=== PATIENT | female | born 1940 | race Caucasian/White ===

== ENCOUNTER 2018-05-28 20:00 | Inpatient (IN) ==
--- NOTE | 2018-05-28 20:20 | ED ---
HPI General Chief Complaint: Trauma Stated Complaint: Trauma Transfer Time Seen by Provider: 05/28/18 20:09 Source: patient Mode of arrival: EMS Limitations: no limitations History of Present Illness HPI narrative: The patient is a 77 year old female who presents to the [facility] emergency department with a history of reportedly tripping and falling on uneven concrete at approximately 4 PM earlier today while taking a walk with her . She reports that she hit her head and believes that she had a loss of consciousness as she is amnestic to the events of the accident itself. She was able to get herself home, however then ambulance services were called. The patient was brought to [facility] emergency department and imaging was done of the patient's brain and maxillofacial bones at which time it was noted that the patient had a small subdural hematoma along the left leaf of the tentorium measuring 4 mm. As that facility has no trauma services and no neuro bloody and accepted for transferred by Dr. Roche. The patient was given Tylenol for headache and reports that her headache has improved. She reports having mild right-sided facial pain. She denies having any nausea or vomiting. She denies having any neck pain, numbness or tingling to her extremities, or weakness of her extremities. On review of systems otherwise, the patient denies having any chest pain, shortness of breath, abdominal pain, vomiting, diarrhea, urinary symptoms, or other neurologic symptoms. Related Data Home Medications Medication Instructions Recorded Confirmed alendronate [Fosamax] 70 mg PO QWEEK 05/28/18 05/28/18 losartan 25 mg PO DAILY 05/28/18 05/28/18 Allergies Allergy/AdvReac Type Severity Reaction Status Date / Time No Known Allergies Allergy Verified 05/28/18 20:23 Review of Systems ROS: all other systems reviewed are negative PMFSH History History Provided By: Patient Medical History Medical History History of breast cancer (Acute) Hypertension (Acute) Osteoporosis (Acute) Surgical History Surgical History H/O foot surgery (Acute) S/P breast lumpectomy (Acute) Social History Social History Substance History: No History of Abuse Second Hand Smoke Exposure: No Smoking Status: Never smoker How Often Do You Have a Drink Containing Alcohol: 2 to 4 times a month Recent Travel [facility] within the Last 8 Weeks: No Recent Out of Country Travel within the Last 8 Weeks: No Exam Const General: cooperative, no acute distress and well developed Nutritional Appearance: well nourished Orientation: alert, awake and oriented x3 HENMT Head: normocephalic and other (The patient has periorbital ecchymosis around the right eye right maxilla. No crepitus or step-off, no increased facial bone motility on palpation.) Nose: no nasal discharge and no epistaxis Mouth: moist mucous membranes Throat: posterior oropharynx normal and uvula midline Eyes Sclera: normal sclerae Pupils: PERRL EOM: EOM intact bilaterally Neck Neck: no meningeal signs, trachea midline and no JVD Resp Effort & Inspection: no use of accessory muscles Auscultation: clear to auscultation bilaterally Cardio Rate: regular rate Rhythm: regular rhythm Heart Sounds: no murmurs GI Inspection: non-distended Palpation: soft, no hepatosplenomegaly and nontender Back/Spine/Pelvis Back: no CVA tenderness Cervical Spine: No cervical spinal tenderness Thoracic/Lumbar Spine: No thoracic spinal tenderness and No lumbar spinal tenderness Skin General: dry skin (warm) Neuro General: alert and awake Cranial Nerves: other Speech: speech normal Motor: no movement abnormalities noted Extrem General: normal to inspection, no clubbing, no cyanosis and no edema Psych Mood: congruent mood Affect: normal affect Judgment: judgment good Course Consultations Consultation #1: The patient's case including history, pertinent physical examination findings, and laboratory studies were discussed with Dr. Roche, the trauma surgeon. It was agreed that the patient would be admitted to the trauma service. Time: 20:21 Initial Documented Vital Signs Temperature 98.7 F 05/28/18 20:25 Pulse Rate 74 05/28/18 20:25 Respiratory Rate 16 05/28/18 20:25 Blood Pressure 198/84 H 05/28/18 20:25 Last Documented Vital Signs Temperature 98.7 F 05/28/18 20:25 Pulse Rate 74 05/28/18 20:25 Respiratory Rate 16 05/28/18 20:25 Blood Pressure 198/84 H 05/28/18 20:25 Medical Decision Making MDM Narrative Medical decision making narrative: During the course of the patient's emergency department visit, the patient's history, examination, and differential diagnosis were reviewed with the patient. The patient was placed on a cardiac rn with oximetry and frequent blood pressure monitoring. The patient had IV access obtained and blood work sent for analysis. Diagnostic evaluation was started regarding the patient's head injury, fall. The patient's record from the other facility was reviewed. It were not able to provide a CD of the images , after speaking with the trauma surgeon he recommended that a repeat CT scan of the brain be done as well as a CT scan of the C-spine as this was not done at their facility. A chest and pelvis x-ray will also be done to complete the patient's trauma evaluation. He agreed with the plan for the patient to be admitted to the [facility] with a consultation to neurosurgery. A call is been placed out to the neurosurgeon urban and regional planner to update them regarding the patient's arrival. The patient was provided at the other emergency department and update of her tetanus, Tylenol for pain. Diagnostic studies at the other facility are remarkable for a white count of 7.8 , hemoglobin 13.5, platelets 211 with a normal differential, PT 9.9, INR 0.94, sodium 137, potassium 4.1, chloride 104, CO2 24, glucose 101, BUN 19, creatinine 0.6. AST was elevated at 80, ALT 74. The patient had a normal alkaline phosphatase and total bilirubin. CT scan of the brain showed a small subdural hematoma along the left leaf of the tentorium measuring 4 mm without any mass-effect noted. CT scan of the facial bones revealed a minimally impacted right zygomatic maxillary complex fracture. Minimal fracture of the floor of the right orbit with mild herniation of extraconal fat, mild diathesis of the right lateral orbital rim suture. The patient will be admitted to the trauma service. accepted the patient for admission. The patient's chest and pelvis x-ray were read as negative for acute trauma by the reading radiologist. Scan of the brain done at this facility reveals a high density acute area of hemorrhage along the medial left temporal lobe that is 2.4 x 1.5 cm in greatest dimension without any evidence of midline shift or mass-effect. CT scan of the C-spine shows no acute abnormality. I Spoke to Dr. Iverson, the neurosurgeon, at approximately 8:30 PM regarding this patient's case. He was agreeable with the current plan. He will see the patient in consultation. The patient's results were discussed with the patient, including the plan of care. I explained that further testing and/ or monitoring is indicated based on the patient's history, examination, and/ or laboratory findings. Therefore, I recommended admission for additional evaluation. The patient expressed understanding and was agreeable with this plan. The patient was admitted to the hospital in guarded condition and sent to a bed under the care of the trauma service. Medical Screen Exam Complete: Yes Emergency Medical Condition: Yes Differential Diagnosis Differential Diagnosis: Intracranial hemorrhage, versus skull fracture, versus cervical spine trauma, versus facial bone trauma Medical Records Medical records reviewed: Yes I reviewed the patient's medical records. Lab Data Lab results reviewed: Yes I reviewed the patient's lab results. Imaging Data Radiologist's impression: Cervical Spine CT 05/28/18 20:23 CONCLUSION: 1. Negative trauma study with no acute fracture or malalignment. Chest X-Ray 05/28/18 20:23 CONCLUSION: No acute cardiopulmonary disease. Head CT 05/28/18 20:23 CONCLUSION: 1. High density acute area of hemorrhage along the medial left temporal lobe as described most characteristic of an area of subdural hematoma. 2. Opacification of the upper right maxillary sinus. . Pelvis X-Ray 05/28/18 20:23 CONCLUSION: Negative trauma study. Discharge Plan Discharge Disposition Patient Disposition: ED Admit(ED Internal Use Only) Discharge Order Discharge Orders: ED Use Only Admit Order (Routine); Ordered 05/28/18 Ordered By: Cher Leos Discharge Details Diagnosis: Acute subdural hematoma, Zygomatic fracture, right side, initial encounter for closed fracture Physicians Team ED Provider: Cher Leos Primary Care Provider: Ho Sánchez JR Attending Provider: Raffy Roche ED Status: Admitted Patient
--- NOTE | 2018-05-28 20:40 | XR ---
EXAM DATE: 05/28/2018 8:37 PM EST AGE/SEX: 77 years / Female INDICATIONS: Fall. Head trauma CLINICAL DATA: This is the patient's initial encounter. Patient reports that signs and symptoms have been present for 1 day and indicates a pain score of 0/10. MEDICAL/SURGICAL HISTORY: None. None. COMPARISON: No prior exams available for comparison. FINDINGS: A single AP view of the chest demonstrates the lungs to be symmetrically aerated without evidence of mass, infiltrate or effusion. The cardiomediastinal contours are unremarkable. Osseous structures a re intact. There are multiple surgical clips and parveen projected over the left breast. CONCLUSION: No acute cardiopulmonary disease. Electronically signed by: Jw Capone MD Board Certified Radiologist 05/28/2018 8:38 PM EST
--- NOTE | 2018-05-28 20:41 | XR ---
EXAM DATE: 05/28/2018 8:38 PM EST AGE/SEX: 77 years / Female INDICATIONS: Fall. CLINICAL DATA: This is the patient's initial encounter. Patient reports that signs and symptoms have been present for 1 day and indicates a pain score of 0/10. MEDICAL/SURGICAL HISTORY: None. None. COMPARISON: No prior exams available for comparison. FINDINGS: Examination of the pelvis demonstrates no evidence of fracture or dislocation. Bony mineralization i s normal. There is no widening of the sacroiliac joints. No foreign body is identified. There are m ild degenerative disc changes and scoliosis in the lower lumbar spine. The sacrum is intact in appear ance. CONCLUSION: Negative trauma study. Electronically signed by: Jw Capone MD Board Certified Radiologist 05/28/2018 8:39 PM EST
--- NOTE | 2018-05-28 21:11 | CT ---
EXAM DATE: 05/28/2018 9:03 PM EST AGE/SEX: 77 years / Female INDICATIONS: Trauma, head injury. CLINICAL DATA: This is the patient's initial encounter. Patient reports that signs and symptoms have been present for 1 day and indicates a pain score of 7/10. MEDICAL/SURGICAL HISTORY: Hypertension. Osteoporosis. None. RADIATION DOSE: 34.24 CTDI (mGy) COMPARISON: None. TECHNIQUE: CT of the head without contrast. Using automated exposure control and adjustment of the mA and/or kV according to patient size, radiation dose was kept as low as reasonably achievable to ob tain optimal diagnostic quality images. DICOM format image data is available electronically for revi ew and comparison. FINDINGS: Cerebrum: The ventricles are normal for age. No evidence of midline shift, mass lesion, or acute in farction. There is a high density acute area of hemorrhage along the medial left temporal lobe measur ing up to approximately 2.4 x 1.5 cm in greatest diameter. This is visualized on images numbers 7 thr ough 9. Posterior Fossa: The cerebellum and brainstem are intact. The 4th ventricle is midline. The cerebe llopontine angle is unremarkable. Extracranial: The visualized portion of the orbits is intact. There is opacification of the right ma xillary sinus Skull: The calvaria is intact. No evidence of skull fracture. CONCLUSION: 1. High density acute area of hemorrhage along the medial left temporal lobe as described most zen cteristic of an area of subdural hematoma. 2. Opacification of the upper right maxillary sinus. . Electronically signed by: Jw Capone MD Board Certified Radiologist 05/28/2018 9:09 PM EST
--- NOTE | 2018-05-28 21:17 | CT ---
EXAM DATE: 05/28/2018 9:13 PM EST AGE/SEX: 77 years / Female INDICATIONS: Trauma, head injury. CLINICAL DATA: This is the patient's initial encounter. Patient reports that signs and symptoms have been present for 1 day and indicates a pain score of 7/10. MEDICAL/SURGICAL HISTORY: Hypertension. Osteoporosis. None. RADIATION DOSE: 13.52 CTDI (mGy) COMPARISON: No prior exams available for comparison. TECHNIQUE: Contiguous axial images were obtained using helical multirow detector technique. The vol umetric data was post-processed with multiplanar reconstruction in oblique axial, sagittal, and coron al planes. Using automated exposure control and adjustment of the mA and/or kV according to patient s ize, radiation dose was kept as low as reasonably achievable to obtain optimal diagnostic quality ronnie ges. DICOM format image data is available electronically for review and comparison. FINDINGS: Vertebrae: Normal vertebral body height. Discs: There are degenerative disc changes at the C3-4, C4-5 and C5-6 levels with disc space narrowin g and mild hypertrophic change greatest at C5-6. Alignment: Normal. No subluxation. The axial images demonstrate that the vertebral bodies and posterior elements are intact. There is a posterior disc osteophyte complex at the C5-6 level with mass effect on the anterior thecal sac. Ther e are degenerative changes involving the right C3-4 facet. CONCLUSION: 1. Negative trauma study with no acute fracture or malalignment. Electronically signed by: Jw Capone MD Board Certified Radiologist 05/28/2018 9:16 PM EST
--- NOTE | 2018-05-28 22:59 | MH ---
cc: Raffy Roche MD DATE OF ADMISSION: 05/28/2018 HISTORY OF PRESENT ILLNESS: This is a 77-year-old female who was walking on the sidewalk and states there was uneven sidewalk and she tripped, falling forward and hitting her face. She then walked home and called an ambulance from home. She was taken to the [facility] where she was found to have a subdural hemorrhage as well as facial fractures. A request was made for a transfer to [place] for management. The patient on my evaluation is lying on a stretcher, in no acute distress. She complains of a headache and right face pain. She is unsure of loss of consciousness. She denies chest pain, shortness of breath. No abdominal pain. No paresthesias. PAST MEDICAL HISTORY: Significant for hypertension as well as osteoporosis. ALLERGIES: SHE HAS NO KNOWN DRUG ALLERGIES. PAST SURGICAL HISTORY: Significant for a lumpectomy of the breast. SOCIAL HISTORY: She does not smoke or drink alcohol. FAMILY HISTORY: Noncontributory. REVIEW OF SYSTEMS: Significant for above. All other 10-point review negative. PHYSICAL EXAMINATION: GENERAL: This patient is in no acute distress. HEENT: Her pupils are equal and reactive. She has ecchymosis around her right eye. Her trachea is midline. NECK: Nontender. RESPIRATORY: Clear. CARDIOVASCULAR: Regular. GASTROINTESTINAL: Soft, nontender. MUSCULOSKELETAL: No deformities. NEUROLOGIC: Nonfocal. IMAGING DATA: CAT scan of the patient's head revealed a subdural hemorrhage. CT of the cervical spine, no acute fractures. Chest x-ray, no acute disease. Pelvic x-ray, no acute fractures. ASSESSMENT AND PLAN: This is a patient status post fall with a closed head injury and facial fractures. The patient will be admitted to the [facility]. Neurosurgery has been consulted as well as oral maxillofacial surgery. We will monitor neurological status, provide pain management and monitor hemodynamics. MD LANIE Rodriguez/demond , 10:40 PM , 10:46 PM
[2018-05-28] MEDS: Pantoprazole Inj 40 MG Vial IV.PUSH SCH (23:58)
[2018-05-29] MEDS: Sod Chloride 0.9% Inj 1,000 ML IV.CONT SCH ×2 (00:15→18:33)
[2018-05-29] MEDS: levETIRAcetam 500 MG Tablet PO SCH ×3 (00:42→21:55)
[2018-05-29] MEDS ORDERED: Morphine Sulfate Inj 2 MG/ML Vial IV.PUSH PRN (06:29)
[2018-05-29 06:30] LABS: Baso # (Auto) 0.1 th/mm3 (0.0-0.2); Baso % (Auto) 0.9 % (0.0-2.0); Eos % (Auto) 0.7 % (0.0-4.0); Hematocrit 36.4 % (35.0-46.0); Hemoglobin 12.8 gm/dL (11.6-15.3); Lymph # (Auto) 1.9 th/mm3 (1.0-4.8); Lymph % (Auto) 28.7 % (9.0-44.0); Mean Corpuscular HGB Conc 35.3 % (32.0-36.0); Mean Corpuscular Hemoglobin 34.6 pg (27.0-34.0); Mean Corpuscular Volume 98.1 fL (80.0-100.0); Mean Platelet Volume 8.8 fL (7.0-11.0); Mono # (Auto) 0.5 th/mm3 (0.0-0.9); Mono % (Auto) 8.1 % (0.0-8.0); Neut % (Auto) 61.6 % (16.0-70.0); Platelet Count 185 th/mm3 (150-450); Red Blood Count 3.71 mil/mm3 (4.00-5.30); White Blood Count 6.5 th/mm3 (4.0-11.0)
[2018-05-29 06:58] LABS: Alanine Aminotransferase 53 U/L (10-53); Albumin 3.4 g/dL (3.4-5.0); Anion Gap 5 meq/L (5-15); Aspartate Aminotransferase 41 U/L (15-37); Blood Urea Nitrogen 13 mg/dL (7-18); Calcium 8.4 mg/dL (8.5-10.1); Carbon Dioxide 25.3 meq/L (21.0-32.0); Chloride 110 meq/L (98-107); Glomerular Filtration Rate 89 mL/min (>89); Glucose,Random 93 mg/dL (74-106); Potassium 3.6 meq/L (3.5-5.1); Sodium 140 meq/L (136-145)
[2018-05-29 07:01] LABS: Alkaline Phosphatase 116 U/L (45-117); Total Protein 7.1 g/dL (6.4-8.2)
--- NOTE | 2018-05-29 08:06 | P.NPEVAL ---
Patient History - Record/History Review Reason for Referral: The patient is a 77 year old presumed right handed woman status post complicated mild traumatic injury secondary to a fall sustained on 05/28/2018. The patient was walking with her and tripped on uneven concrete. She reported positive LOC and positive SPECIAL SERVICES COORDINATOR. Once home, ambulance was called and she was seen at a local hospital. There CT of the head showed small SDH along left tentorium. She is referred for baseline neurobehavioral status examination per trauma protocol to assess cognitive, behavioral and emotional aspects of the injury and to provide treatment recommendations. [facility] - History History Provided By: Patient - Medical History Medical History: Medical History (Last Reviewed 05/29/18 @ 07:40 by Kiesha Resendiz) History of breast cancer Hypertension Osteoporosis - Surgical History Surgical History: Surgical History (Last Reviewed 05/29/18 @ 07:40 by Kiesha Resendiz) H/O foot surgery S/P breast lumpectomy - Tobacco History Second Hand Smoke Exposure: No Smoking Status: Never smoker - Alcohol History How Often Do You Have a Drink Containing Alcohol: 2 to 4 times a month - Substance Use History Substance History: No History of Abuse - Travel History Recent Travel in the [place] Within the Last 8 Weeks: No Recent Travel Out of the Country Within the Last 8 Weeks: No - Immunization History Tetanus Immunization: <5 Years Tetanus Immunization Year if Known: 2017 Medications Active Medications Acetaminophen (Tylenol) 650 mg PO Q4H PRN PRN Reason: SEE LABEL COMMENTS Al Hydroxide/Mg Hydroxide (Milk Of Magnwilliam Liq) 30 ml PO BID [facility] Bacitracin (Baciguent Oint) 1 applicatio TOPICAL BID [facility] Clonidine HCl (Catapress-Tts 0.2 Mg Patch.7d) 1 patch T-DERMAL Q7D [facility] Last Admin: 05/29/18 00:42 Dose: Not Given Enalaprilat (Vasotec Inj) 1.25 mg IV.PUSH Q8H PRN PRN Reason: Blood pressure 180/95 Sodium Chloride (Ns Inj) 1,000 mls @ 100 mls/hr IV.CONT .Q10H [facility] Last Admin: 05/29/18 00:15 Dose: 100 mls/hr Lactulose (Lactulose Liq) 30 ml PO DAILY PRN PRN Reason: CONSTIPATION Levetiracetam (Keppra) 500 mg PO BID [facility] Last Admin: 05/29/18 00:42 Dose: 500 mg Losartan Potassium (Cozaar) 25 mg PO DAILY [facility] Morphine Sulfate (Morphine Inj) 2 mg IV.PUSH Q4H PRN PRN Reason: BREAKTHROUGH PAIN Ondansetron HCl (Zofran Inj) 4 mg IV.PUSH Q6H PRN PRN Reason: NAUSEA OR VOMITING Oxycodone HCl (Roxicodone) 5 mg PO Q4H PRN PRN Reason: pain > 3 Pantoprazole Sodium (Protonix Inj) 40 mg IV.PUSH Q24H [facility] Last Admin: 05/28/18 23:58 Dose: 40 mg Patch Removal (Remove Old Patch) 0 each T-DERMAL Q7D [facility] Last Admin: 05/29/18 00:43 Dose: Not Given Senna/Docusate Sodium (Joanna-Colace) 1 tab PO BID [facility] Sodium Chloride (Ns Flush) 2 ml IV.FLUSH UNSCH PRN PRN Reason: FLUSH AFTER USING IV ACCESS Mental Status Assessment - Mental Status Orientation: oriented to: Self, Place, Time, Situation Mental Status: WFL: Language/interactions, Learning/memory, Problem-solving, Variable: Thought processing, Attention Absent: Hallucinations, Delusions Adjustment/Coping Assessment - Observation In terms of emotional functioning, the patient demonstrated normal adjustment. This patient demonstrated no signs of agitation, impulsivity or disinhibition, nor was there remarkable evidence of a formal thought disorder or psychosis. There was no evidence of depression or anxiety. Thought content was free from suicidal, homicidal or paranoid ideation, and thought processes were logical and goal-directed albeit somewhat slowed. The patients mood was euthymic, and her affect was stable and appropriate. The patient appears to possess adequate insight and awareness into their situation and within the limits of this brief evaluation, adequate] judgment. - Goals/Team Members LTG Status: Deferred STG Status: Deferred Team Members: Neuropsychologist Behavior - Behavior Treatment Engagement: Average - Observation Behaviorally, the patient demonstrated no signs of agitation, impulsivity or disinhibition. There was no remarkable evidence of a formal thought disorder or psychosis. - Goals LTG Status: Deferred STG Status: Deferred - Team Members Team Members: Neuropsychologist Diagnosis/Discharge Plan - Diagnosis (1) Mild major neurocognitive disorder as late effect of traumatic brain injury without behavioral disturbance Status: Acute Impression: 77 year old woman s/p complicated mild TBI 2T fall on 05/28/2018. [facility] Level: Level Maximizing Acute Care Outcome: It is recommended that the patient be monitored for emergent behavioral impulsivity as the medical condition evolves. This patients neuropathological challenges may limit rehabilitation potential going forward, and these challenges will require specialized therapeutic skills to maximize outcome. Additionally, the patients family is experiencing ongoing issues of adjustment given the traumatic nature of the injury, and they may benefit from ongoing psychological assistance. At this point in the recovery process, the patient does have cognitive capacity as the patient is able to understand a situation and its likely consequences, and she is able to manipulate information rationally. Cognitive capacity will be assessed throughout the recovery process. - Discharge Planning Anticipated Problems: Ongoing areas of concern will include behavioral impulsivity, lack of insight and judgment, which is expected to improve with time and treatment. Treatment Plan: This clinician will continue to follow with you throughout the course of this patients critical care treatment, and I will be available to meet with the patients family/support system to facilitate their understanding and the ongoing care of their family member. The goals of neuropsychological intervention shall be both educational and supportive to the family/support system as is deemed clinically appropriate. Thank you for the opportunity to assist in this patients care. Wale Conn, Ph.D., ABPP Board Certified in Clinical Neuropsychology [place] [employer] [place] Licensed Psychologist #[id number]
--- NOTE | 2018-05-29 08:15 | P.CONNS ---
History of Present Illness Service: Neurosurgery Consult date: 06/05/18 Requesting Physician: Raffy Roche (Trauma surgery) Reason for Consult: Traumatic brain injury Primary Care Provider: Ho Sánchez JR, DO History of Present Illness: 77 year old female who presents to the [facility] emergency department with a history of reportedly tripping and falling on uneven concrete yesterday while taking a walk with her . She reports that she hit her head and believes that she had a loss of consciousness as she is amnestic to the events of the accident itself. She was able to get herself home, however then ambulance services were called. The patient was brought to [facility] emergency department and imaging was done of the patient's brain and maxillofacial bones at which time it was noted that the patient had a small subdural hematoma along the left leaf of the tentorium measuring 4 mm. As that facility has no trauma services and no neuro bloody and accepted for transferred by Dr. Roche. The patient was given Tylenol for headache and reports that her headache has improved. She reports having mild right-sided facial pain. She denies having any nausea or vomiting. She denies having any neck pain, numbness or tingling to her extremities, or weakness of her extremities. On review of systems otherwise, the patient denies having any chest pain, shortness of breath, abdominal pain, vomiting, diarrhea, urinary symptoms, or other neurologic symptoms. Follow-up CT scan of the head this morning reveals a stable small left medial temporal tentorial subdural hemorrhage. Review of Systems Constitutional: Denies anorexia, Denies body ache(s), Denies chills, Denies daytime sleepiness, Denies excessive sweating, Denies fatigue, Denies fever(s), Denies headache(s), Denies increased appetite, Denies lack of energy, Denies malaise, Denies night sweats, Denies weakness, Denies weight gain, Denies weight loss, Denies other Eyes: Denies blind spots, Denies blurry vision, Denies bulging eyes, Denies change in vision, Denies double vision, Denies discharge, Denies dry eyes, Denies floaters, Denies irritation, Denies itchy eyes, Denies loss of vision, Denies pain, Denies requires corrective lenses, Denies sensitivity to light, Denies other Ears, Nose, Mouth, and Throat: Reports facial pain, Reports headache(s), Denies abnormal hearing, Denies bleeding gums, Denies bad breath, Denies change in voice, Denies dental pain, Denies difficulty swallowing, Denies dizziness, Denies dry mouth, Denies ear discharge, Denies ear pain, Denies hearing loss, Denies hoarseness, Denies lip swelling, Denies nosebleed, Denies mouth lesions, Denies mouth pain, Denies nasal congestion, Denies nasal discharge, Denies nasal obstruction, Denies nasal trauma, Denies neck lump, Denies neck pain, Denies nose pain, Denies pain with swallowing, Denies poor balance, Denies post nasal drip, Denies ringing in the ears, Denies sinus pain, Denies sinus pressure , Denies sore throat, Denies throat swelling, Denies tongue swelling, Denies other Cardiovascular: Denies chest pain, Denies chest pain at rest, Denies chest pain with activity, Denies excessive sweating, Denies fainting, Denies fast heart rate, Denies foot swelling, Denies generalized swelling, Denies irregular heart rhythm, Denies leg pain with activity, Denies leg sores, Denies leg swelling, Denies lightheadedness, Denies radiating jaw, neck or arm pain, Denies rapid, pounding, or irregular heartbeat, Denies shortness of breath, Denies shortness of breath with activity, Denies shortness of breath when lying down, Denies shortness of breath causing sudden awakening, Denies slow heart rate, Denies other Respiratory: Denies change in phlegm color, Denies chest congestion, Denies cough, Denies coughing up blood, Denies excessive phlegm production, Denies pain on inspiration, Denies pain with cough, Denies shortness of breath, Denies shortness of breath with activity, Denies snoring, Denies stridor, Denies wheezing, Denies other Gastrointestinal: Denies abdominal pain, Denies belching, Denies black, tarry stools, Denies bloating, Denies bright, red blood in stools, Denies change in bowel habits, Denies constant urge to pass stool, Denies change in stools, Denies coffee ground vomit, Denies constipation, Denies cramping, Denies difficulty swallowing, Denies excessive passing of gas, Denies feeling full early, Denies heartburn, Denies incontinent of stools, Denies loose stools, Denies nausea, Denies pain with swallowing, Denies vomiting, Denies vomiting blood, Denies other Genitourinary: Denies abnormal periods, Denies abnormal vaginal bleeding, Denies absent period, Denies bleeding between periods, Denies blood in urine, Denies difficulty starting urination, Denies difficulty urinating, Denies dribbling after urination, Denies frequent nighttime urination, Denies genital itching, Denies genital lesions, Denies heavy periods, Denies hot flashes, Denies light periods, Denies nipple discharge, Denies painful intercourse, Denies painful periods, Denies painful urination, Denies pelvic pain, Denies prolapse symptoms, Denies sexual problems, Denies side pain, Denies urinary incontinence, Denies urinary urgency, Denies vaginal discharge, Denies vaginal dryness, Denies vaginal odor, Denies vaginal itching, Denies other Musculoskeletal: Denies abnormal walking, Denies back pain, Denies body aches, Denies decreased muscle mass, Denies deformity, Denies joint pain, Denies joint swelling, Denies limited joint movement, Denies loss of height, Denies muscle cramps, Denies muscle weakness, Denies neck pain, Denies numbness, Denies radiating pain into limb, Denies stiffness, Denies tingling, Denies other Skin/Breast: Denies acne, Denies bleeding lesions, Denies boil, Denies breast swelling, Denies breast skin changes, Denies breast pain, Denies breast lump, Denies change in breast shape, Denies change in hair, Denies change in skin color, Denies changing lesions, Denies dry skin, Denies excessive hair growth, Denies hair loss, Denies itching, Denies lesions, Denies nail changes, Denies new lesions, Denies nipple discharge, Denies non-healing lesions, Denies redness , Denies sensitivity to light, Denies rash, Denies skin pain, Denies skin ulcer , Denies sores, Denies stretch gonsalez, Denies unusual bruising, Denies wounds, Denies yellowing of the skin, Denies other Neurologic: Reports headache(s), Denies abnormal hearing, Denies abnormal movements, Denies abnormal speech, Denies abnormal walking, Denies behavioral changes, Denies burning sensations, Denies confusion, Denies dizziness, Denies fainting, Denies frequent falls, Denies lack of coordination, Denies localized weakness, Denies loss of vision, Denies memory loss, Denies numbness, Denies other visual disturbances, Denies radiating pain, Denies restless legs, Denies convulsions, Denies seizure-like activity, Denies sensory deficit, Denies tingling, Denies tingling/numbness/burning sensations, Denies tremor(s), Denies unsteadiness, Denies weakness, Denies other Psychiatric: Denies abnormal sleep pattern, Denies anxiety, Denies behavioral changes, Denies change in appetite, Denies change in sex drive, Denies confusion , Denies depression, Denies difficulty concentrating, Denies hearing things others do not hear, Denies hopelessness, Denies irritability, Denies lack of enjoyment, Denies memory loss, Denies mood swings, Denies panic attacks, Denies paranoia, Denies seeing things others do not see, Denies sensing things others do not sense, Denies tactile hallucinations, Denies thoughts of hurting/killing others, Denies thoughts of hurting/killing yourself, Denies other Endocrine: Denies cold intolerance, Denies excessive sweating, Denies flushing, Denies heat intolerance, Denies increased hunger, Denies increased thirst, Denies increased urination, Denies rapid, pounding, or irregular heartbeat, Denies other Hematologic/Lymphatic: Denies easy bleeding, Denies easy bruising, Denies enlarged lymph nodes, Denies other Allergic/Immunologic: Denies GI upset with certain foods, Denies hives, Denies itchy eyes, Denies lip swelling, Denies seasonal runny nose, Denies throat swelling, Denies tongue swelling, Denies wheezing, Denies other PMFSH - History History Provided By: Patient - Medical History Medical History: Medical History (Last Reviewed 05/29/18 @ 08:14 by Mesfin Iverson MD) History of breast cancer Hypertension Osteoporosis - Surgical History Surgical History: Surgical History (Last Reviewed 05/29/18 @ 08:14 by Mesfin Iverson MD) H/O foot surgery S/P breast lumpectomy - Tobacco History Second Hand Smoke Exposure: No Smoking Status: Never smoker - Alcohol History How Often Do You Have a Drink Containing Alcohol: 2 to 4 times a month - Substance Use History Substance History: No History of Abuse - Travel History Recent Travel in the [place] Within the Last 8 Weeks: No Recent Travel Out of the Country Within the Last 8 Weeks: No - Immunization History Tetanus Immunization: <5 Years Tetanus Immunization Year if Known: 2017 Medications and Allergies Active Medications: Active Medications Acetaminophen (Tylenol) 650 mg PO Q4H PRN PRN Reason: SEE LABEL COMMENTS Al Hydroxide/Mg Hydroxide (Milk Of Magnesia Liq) 30 ml PO BID FOR[facility]LY [facility], 1928–1983 Bacitracin (Baciguent Oint) 1 applicatio TOPICAL BID FORMERLY [facility], 1928–1983 Clonidine HCl (Catapress-Tts 0.2 Mg Patch.7d) 1 patch T-DERMAL Q7D FORMERLY [facility], 1928–1983 Last Admin: 05/29/18 00:42 Dose: Not Given Enalaprilat (Vasotec Inj) 1.25 mg IV.PUSH Q8H PRN PRN Reason: Blood pressure 180/95 Sodium Chloride (Ns Inj) 1,000 mls @ 100 mls/hr IV.CONT .Q10H FOR[facility]LY [facility], 1928–1983 Last Admin: 05/29/18 00:15 Dose: 100 mls/hr Lactulose (Lactulose Liq) 30 ml PO DAILY PRN PRN Reason: CONSTIPATION Levetiracetam (Keppra) 500 mg PO BID FORMERLY [facility], 1928–1983 Last Admin: 05/29/18 00:42 Dose: 500 mg Losartan Potassium (Cozaar) 25 mg PO DAILY FOR[facility]LY [facility], [facility]1983 Morphine Sulfate (Morphine Inj) 2 mg IV.PUSH Q4H PRN PRN Reason: BREAKTHROUGH PAIN Ondansetron HCl (Zofran Inj) 4 mg IV.PUSH Q6H PRN PRN Reason: NAUSEA OR VOMITING Oxycodone HCl (Roxicodone) 5 mg PO Q4H PRN PRN Reason: pain > 3 Pantoprazole Sodium (Protonix Inj) 40 mg IV.PUSH Q24H FOR[facility], [facility]1983 Last Admin: 05/28/18 23:58 Dose: 40 mg Patch Removal (Remove Old Patch) 0 each T-DERMAL Q7D FOR[facility], [facility]1983 Last Admin: 05/29/18 00:43 Dose: Not Given Senna/Docusate Sodium (Joanna-Colace) 1 tab PO BID FOR[facility], [facility]1983 Sodium Chloride (Ns Flush) 2 ml IV.FLUSH UNSCH PRN PRN Reason: FLUSH AFTER USING IV ACCESS Allergies Allergy/AdvReac Type Severity Reaction Status Date / Time No Known Allergies Allergy Verified 05/28/18 20:23 Home Medications Medication Instructions Recorded Confirmed Type alendronate [Fosamax] 70 mg PO QWEEK 05/28/18 05/28/18 History losartan 25 mg PO DAILY 05/28/18 05/28/18 History Exam Vital signs: Vital Signs 05/28/18 20:25 05/28/18 22:13 05/29/18 00:00 Temperature 98.7 F Pulse Rate 74 68 68 Respiratory Rate 16 18 Blood Pressure 198/84 H 149/67 H Pulse Oximetry 05/29/18 02:20 05/29/18 02:31 05/29/18 03:00 Temperature 99.0 F Pulse Rate 64 65 Respiratory Rate 21 22 Blood Pressure 130/63 Pulse Oximetry 94 L 95 95 05/29/18 03:12 05/29/18 04:00 05/29/18 04:12 Temperature 98.9 F Pulse Rate 65 67 64 Respiratory Rate 22 20 20 Blood Pressure 129/59 L 136/65 136/65 Pulse Oximetry 96 96 96 05/29/18 05:00 05/29/18 05:12 05/29/18 06:00 Temperature Pulse Rate 64 65 79 Respiratory Rate 20 19 28 H Blood Pressure 137/63 Pulse Oximetry 94 L 94 L 97 05/29/18 06:12 Temperature Pulse Rate 65 Respiratory Rate 21 Blood Pressure 140/63 Pulse Oximetry 95 Intake & Output 05/28/18 05/29/18 05/29/18 18:59 06:59 18:59 Intake Total 60 / 60 Balance 60 / 60 Weight 66.1 kg Intake: Oral 60 / 60 Other: # Voids 3 Date of Last Bowel Movement 05/28/18 Weight On Admission 66.1 kg - Constitutional no acute distress - Routine HEENT Exam Head: Present: hematoma, facial swelling Eye: Present: EOMI, PERRL, periorbital ecchymosis (Right periorbital and facial ecchymosis) ENT: Present: oropharynx clear, nares patent, external ear normal - Routine Neck Exam Present: supple, full ROM - Routine Respiratory Exam Present: CTA bilaterally - Routine Cardiovascular Exam Present: RRR, S1, S2 - Routine Abdominal Exam Present: soft, normoactive bowel sounds - Routine Extremities Exam Present: full ROM - Routine Skin Exam Present: intact - Routine Neurological Exam Present: oriented X3, CN II-XII intact, plantar reflex, moving all extremities, normal speech - Detailed Neurological Exam: Coma Scale Eye Opening: Spontaneous Verbal Response: Oriented Motor Response: Obey commands Edgar Coma Scale Total: 15 Results - Laboratory Findings CBC and BMP: 05/29/18 05:47 05/29/18 05:47 Abnormal lab findings: Abnormal Labs 05/29/18 05/29/18 05:47 05:47 RBC 3.71 L MCH 34.6 H Webb % (Auto) 8.1 H Chloride 110 H Calcium 8.4 L AST 41 H - Diagnostic Findings Additional findings: Impressions Cervical Spine CT 05/28/18 20:23 CONCLUSION: 1. Negative trauma study with no acute fracture or malalignment. Chest X-Ray 05/28/18 20:23 CONCLUSION: No acute cardiopulmonary disease. Head CT 05/28/18 20:23 CONCLUSION: 1. High density acute area of hemorrhage along the medial left temporal lobe as described most characteristic of an area of subdural hematoma. 2. Opacification of the upper right maxillary sinus. . Pelvis X-Ray 05/28/18 20:23 CONCLUSION: Negative trauma study. Assessment and Plan - Assessment (1) Acute subdural hematoma Code(s): S06.5X9A - Traumatic subdural hemorrhage with loss of consciousness of unspecified duration, initial encounter Status: Acute - Plan 77-year-old lady with a small left tentorial subdural hemorrhage after a trip and fall yesterday which is stable on follow-up imaging studies today. Other than complains of mild headache she has no other complaints or neurologic deficits. She is awaiting plastic surgery evaluation for facial fractures. Patient is stable from a neurosurgical standpoint and can increase her activity and diet status as tolerated and at this point does not require any neurosurgical intervention. Updated at bedside and discussed with the trauma surgeon Dr. Sanchez
[2018-05-29] MEDS: Senna/Docusate Sodium 8.6/50 MG Tablet PO SCH ×2 (09:18→21:55)
[2018-05-29] MEDS: Acetaminophen 325 MG Tablet PO PRN (09:18)
--- NOTE | 2018-05-29 10:09 | CT ---
EXAM DATE: 05/29/2018 9:56 AM EST AGE/SEX: 77 years / Female INDICATIONS: Trauma, facial injury. CLINICAL DATA: This is the patient's initial encounter. Patient reports that signs and symptoms have been present for 1 day and indicates a pain score of 8/10. MEDICAL/SURGICAL HISTORY: Hypertension. Carcinoma, breast. None. RADIATION DOSE: 53.36 CTDI (mGy) COMPARISON: No prior exams available for comparison. TECHNIQUE: Contiguous images in the axial and coronal planes were obtained using helical multirow de tector technique. Using automated exposure control and adjustment of the mA and/or kV according to p atient size, radiation dose was kept as low as reasonably achievable to obtain optimal diagnostic deny lity images. DICOM format image data is available electronically for review and comparison. FINDINGS: Orbits: There is a minimally depressed fracture of the right orbital floor without muscle entrapment . The globes have a normal appearance and lenses are normally located. The external structures demons trate no abnormality. Nasal Bones: The nasal bones and maxillary spine are intact. Zygomatic Arches: Symmetric without fracture. Sinuses: There are comminuted minimally depressed fractures of the anterior and posterior maxillary sinus carreon on the right. Blood products fill the right maxillary antrum. Small mucous retention cyst is located in the left maxillary antrum. Remaining sinuses are clear. Nasal Cavity: The nasal septum is intact and midline. Soft Tissues: There is right facial and periorbital soft tissue swelling and subcutaneous edema. No radiopaque foreign body is identified. Other: The mandible and pterygoid plates are intact. Visualized intracranial structures demonstrate n o acute abnormality. CONCLUSION: 1. There are acute mildly depressed fractures of the right anterior and posterior maxillary sinus wa lls with minimally depressed right orbital floor fracture without muscle entrapment. There is associa clifford acute blood products in the right maxillary antrum and there is associated right facial swelling. 2. No other maxillofacial fractures are identified. Electronically signed by: James Campbell MD Board Certified Radiologist 05/29/2018 10:07 AM EST
--- NOTE | 2018-05-29 10:39 | P.PNCC ---
Subjective Brief History: 77-year-old lady fell walking from standing position and hit her head on the concrete Amnestic to the event itself complaining about headache and facial pain Patient was initially seen at another hospital and transferred to us for further trauma management Workup reveals Left temporal cerebral hemorrhagic contusion Right maxillary sinus fracture and right inferior orbital wall fracture without muscle entrapment Patient is awake alert and oriented and neurologically intact Neurosurgery consult is greatly appreciated 24 Hour Review/Hospital Course: 05/29/2018 Patient has been stable over the last 16 hours since the admission She is neurologically intact Bruising over the right face and CT scan of the brain reveals an evolving left temporal cerebral contusion We will keep patient in ICU Advance diet IV fluids as needed depending on p.o. intake [facility] Physical therapy and discharge planning Objective Vital Signs / I&O: Vital Signs 05/28/18 20:25 05/28/18 22:13 05/29/18 00:00 Temperature 98.7 F Pulse Rate 74 68 68 Respiratory Rate 16 18 Blood Pressure 198/84 H 149/67 H Pulse Oximetry 05/29/18 02:20 05/29/18 02:31 05/29/18 03:00 Temperature 99.0 F Pulse Rate 64 65 Respiratory Rate 21 22 Blood Pressure 130/63 Pulse Oximetry 94 L 95 95 05/29/18 03:12 05/29/18 04:00 05/29/18 04:12 Temperature 98.9 F Pulse Rate 65 67 64 Respiratory Rate 22 20 20 Blood Pressure 129/59 L 136/65 136/65 Pulse Oximetry 96 96 96 05/29/18 05:00 05/29/18 05:12 05/29/18 06:00 Temperature Pulse Rate 64 65 79 Respiratory Rate 20 19 28 H Blood Pressure 137/63 Pulse Oximetry 94 L 94 L 97 05/29/18 06:12 05/29/18 07:00 05/29/18 07:12 Temperature Pulse Rate 65 62 64 Respiratory Rate 21 22 23 Blood Pressure 140/63 140/63 Pulse Oximetry 95 95 95 05/29/18 08:00 05/29/18 08:12 05/29/18 09:00 Temperature 98.7 F Pulse Rate 62 66 67 Respiratory Rate 25 H 53 H 20 Blood Pressure 144/68 H 142/64 H Pulse Oximetry 96 95 96 05/29/18 09:12 05/29/18 10:00 05/29/18 10:12 Temperature Pulse Rate 70 64 61 Respiratory Rate 22 24 22 Blood Pressure 144/68 H 123/60 Pulse Oximetry 95 96 95 Intake & Output 05/28/18 05/29/18 05/29/18 18:59 06:59 18:59 Intake Total 60 / 60 Balance 60 / 60 Weight 66.1 kg Intake: Oral 60 / 60 Other: # Voids 3 Date of Last Bowel Movement 05/28/18 05/28/18 Weight On Admission 66.1 kg Result Diagrams: 05/29/18 05:47 05/29/18 05:47 Imaging: Impressions Cervical Spine CT 05/28/18 20:23 CONCLUSION: 1. Negative trauma study with no acute fracture or malalignment. Chest X-Ray 05/28/18 20:23 CONCLUSION: No acute cardiopulmonary disease. Head CT 05/28/18 20:23 CONCLUSION: 1. High density acute area of hemorrhage along the medial left temporal lobe as described most characteristic of an area of subdural hematoma. 2. Opacification of the upper right maxillary sinus. . Pelvis X-Ray 05/28/18 20:23 CONCLUSION: Negative trauma study. Face CT 05/29/18 07:22 CONCLUSION: 1. There are acute mildly depressed fractures of the right anterior and posterior maxillary sinus carreon with minimally depressed right orbital floor fracture without muscle entrapment. There is associated acute blood products in the right maxillary antrum and there is associated right facial swelling. 2. No other maxillofacial fractures are identified. Aggression Score: 14.00 Lability Score: 14.00 Assessment and Plan Attestation: Critical care time 32 minutes
--- NOTE | 2018-05-29 20:24 | P.CON ---
History of Present Illness Service: Plastic surgery Consult date: 05/29/18 Reason for Consult: Right zygomaticomaxillary complex fracture Primary Care Provider: Ho Sánchez JR, DO Chief Complaint: Right facial pain History of Present Illness: 77-year-old female who presented to the emergency department following a ground- level fall, complaining of right facial pain who was found on further workup to have a right zygomaticomaxillary complex fracture. Patient is unclear if she lost consciousness. She denies changes in sensation to her face. She denies changes in her vision and reports no restriction in gaze/diplopia. Patient reports her facial pain is moderate and dull limited to the right cheek/ periorbital area. Patient was brought to the emergency department following transfer from an outside hospital. Patient endorses that her bite feels normal. Except as noted in the HPI review of systems negative to presenting complaint No known drug allergies Medication list reviewed Family history noncontributory to presenting complaint Social history denies smoking/alcohol Past medical history/past surgical history Hypertension, osteoporosis, status post breast lumpectomy PMFSH - History History Provided By: Patient - Medical History Medical History: Medical History (Last Reviewed 05/29/18 @ 09:18 by Siva Platt) History of breast cancer Hypertension Osteoporosis - Surgical History Surgical History: Surgical History (Last Reviewed 05/29/18 @ 09:18 by Siva Platt) H/O foot surgery S/P breast lumpectomy - Tobacco History Second Hand Smoke Exposure: No Smoking Status: Never smoker - Alcohol History How Often Do You Have a Drink Containing Alcohol: 2 to 4 times a month - Substance Use History Substance History: No History of Abuse - Travel History Recent Travel in the [facility] Within the Last 8 Weeks: No Recent Travel Out of the Country Within the Last 8 Weeks: No - Immunization History Tetanus Immunization: <5 Years Tetanus Immunization Year if Known: 2018 Medications and Allergies Active Medications: Active Medications Acetaminophen (Tylenol) 650 mg PO Q4H PRN PRN Reason: SEE LABEL COMMENTS Last Admin: 05/29/18 09:18 Dose: 650 mg Al Hydroxide/Mg Hydroxide (Milk Of Magnesia Liq) 30 ml PO BID [facility] Last Admin: 05/29/18 09:18 Dose: Not Given Bacitracin (Baciguent Oint) 1 applicatio TOPICAL BID [facility] Last Admin: 05/29/18 09:18 Dose: 1 applicatio Clonidine HCl (Catapress-Tts 0.2 Mg Patch.7d) 1 patch T-DERMAL Q7D [facility] Last Admin: 05/29/18 00:42 Dose: Not Given Enalaprilat (Vasotec Inj) 1.25 mg IV.PUSH Q8H PRN PRN Reason: Blood pressure 180/95 Lactulose (Lactulose Liq) 30 ml PO DAILY PRN PRN Reason: CONSTIPATION Levetiracetam (Keppra) 500 mg PO BID [facility] Last Admin: 05/29/18 09:18 Dose: 500 mg Losartan Potassium (Cozaar) 25 mg PO DAILY [facility] Last Admin: 05/29/18 09:18 Dose: 25 mg Morphine Sulfate (Morphine Inj) 2 mg IV.PUSH Q4H PRN PRN Reason: BREAKTHROUGH PAIN Ondansetron HCl (Zofran Inj) 4 mg IV.PUSH Q6H PRN PRN Reason: NAUSEA OR VOMITING Oxycodone HCl (Roxicodone) 5 mg PO Q4H PRN PRN Reason: pain > 3 Pantoprazole Sodium (Protonix Inj) 40 mg IV.PUSH Q24H [facility] Last Admin: 05/28/18 23:58 Dose: 40 mg Patch Removal (Remove Old Patch) 0 each T-DERMAL Q7D [facility] Last Admin: 05/29/18 00:43 Dose: Not Given Senna/Docusate Sodium (Jaonna-Colace) 1 tab PO BID [facility] Last Admin: 05/29/18 09:18 Dose: 1 tab Sodium Chloride (Ns Flush) 2 ml IV.FLUSH UNSCH PRN PRN Reason: FLUSH AFTER USING IV ACCESS Allergies Allergy/AdvReac Type Severity Reaction Status Date / Time No Known Allergies Allergy Verified 05/28/18 20:23 Home Medications Medication Instructions Recorded Confirmed Type alendronate [Fosamax] 70 mg PO QWEEK 05/28/18 05/28/18 History losartan 25 mg PO DAILY 05/28/18 05/28/18 History Physical Exam Vital signs: Vital Signs 05/28/18 20:25 05/28/18 22:13 05/29/18 00:00 Temperature 98.7 F Pulse Rate 74 68 68 Respiratory Rate 16 18 Blood Pressure 198/84 H 149/67 H Pulse Oximetry 05/29/18 02:20 05/29/18 02:31 05/29/18 03:00 Temperature 99.0 F Pulse Rate 64 65 Respiratory Rate 21 22 Blood Pressure 130/63 Pulse Oximetry 94 L 95 95 05/29/18 03:12 05/29/18 04:00 05/29/18 04:12 Temperature 98.9 F Pulse Rate 65 67 64 Respiratory Rate 22 20 20 Blood Pressure 129/59 L 136/65 136/65 Pulse Oximetry 96 96 96 05/29/18 05:00 05/29/18 05:12 05/29/18 06:00 Temperature Pulse Rate 64 65 79 Respiratory Rate 20 19 28 H Blood Pressure 137/63 Pulse Oximetry 94 L 94 L 97 05/29/18 06:12 05/29/18 07:00 05/29/18 07:12 Temperature Pulse Rate 65 62 64 Respiratory Rate 21 22 23 Blood Pressure 140/63 140/63 Pulse Oximetry 95 95 95 05/29/18 08:00 05/29/18 08:12 05/29/18 09:00 Temperature 98.7 F Pulse Rate 63 66 67 Respiratory Rate 20 53 H 20 Blood Pressure 144/68 H 142/64 H Pulse Oximetry 96 95 96 05/29/18 09:12 05/29/18 10:00 05/29/18 10:12 Temperature Pulse Rate 70 64 61 Respiratory Rate 22 24 22 Blood Pressure 144/68 H 123/60 Pulse Oximetry 95 96 95 05/29/18 11:00 05/29/18 12:00 05/29/18 12:12 Temperature 98.1 F Pulse Rate 62 66 62 Respiratory Rate 33 H 35 H 26 H Blood Pressure 118/57 L 118/57 L Pulse Oximetry 93 L 97 96 05/29/18 13:00 05/29/18 13:12 05/29/18 14:00 Temperature Pulse Rate 60 57 L 66 Respiratory Rate 25 H 36 H 32 H Blood Pressure 132/60 Pulse Oximetry 94 L 94 L 95 05/29/18 14:12 05/29/18 15:00 05/29/18 15:12 Temperature Pulse Rate 66 63 63 Respiratory Rate 26 H 21 27 H Blood Pressure 121/58 L 123/56 L Pulse Oximetry 94 L 96 95 05/29/18 16:00 05/29/18 16:12 05/29/18 17:00 Temperature 98.5 F Pulse Rate 60 59 L 61 Respiratory Rate 25 H 24 21 Blood Pressure 119/60 116/55 L Pulse Oximetry 95 95 95 05/29/18 17:12 05/29/18 18:00 05/29/18 18:12 Temperature Pulse Rate 62 61 61 Respiratory Rate 22 24 21 Blood Pressure 119/60 144/65 H Pulse Oximetry 95 95 95 Intake & Output 05/29/18 05/29/18 05/30/18 06:59 18:59 06:59 Intake Total 60 / 60 1480 / 1480 Balance 60 / 60 1480 / 1480 Weight 66.1 kg Intake: IV 1000 / 1000 NS Inj 1,000 ML @ 100 mls/hr IV 1000 / 1000 .CONT .Q10H [facility] Rx#:[id number] Oral 60 / 60 480 / 480 Other: # Voids 3 4 Date of Last Bowel Movement 05/28/18 05/28/18 # Bowel Movements 1 Weight On Admission 66.1 kg Narrative: No apparent anxiety moist mucous membranes PERRLA skin without rash respirations nonlabored moves all 4 extremities to command digits warm well perfused Cranial nerves intact by exam V1 to V3 within normal limits and symmetric No nasal septal hematoma Occlusion appears within normal limits Moderate right facial/periorbital edema/ecchymoses Extraocular muscles intact and without restriction in upward gaze Maxillofacial CT images personally reviewed by me showing minimally displaced right zygomaticomaxillary complex fracture consistent with the radiology report Results - Labs CBC & Chem 7: 05/29/18 05:47 05/29/18 05:47 Labs: Laboratory Results - last 24 hr 05/29/18 05/29/18 05/29/18 00:00 05:47 05:47 WBC 6.5 RBC 3.71 L Hgb 12.8 Hct 36.4 MCV 98.1 MCH 34.6 H MCHC 35.3 RDW 12.0 Plt Count 185 MPV 8.8 Neut % (Auto) 61.6 Lymph % (Auto) 28.7 [place] % (Auto) 8.1 H Eos % (Auto) 0.7 Baso % (Auto) 0.9 Neut # (Auto) 4.0 Lymph # (Auto) 1.9 [place] # (Auto) 0.5 Eos # (Auto) 0.0 Baso # (Auto) 0.1 WBC Differential . Differential Comment Auto diff final Sodium 140 Potassium 3.6 Chloride 110 H Carbon Dioxide 25.3 Anion Gap 5 BUN 13 Creatinine 0.65 Estimated GFR 89 Random Glucose 93 Calcium 8.4 L Total Bilirubin 0.5 AST 41 H ALT 53 Alkaline Phosphatase 116 Total Protein 7.1 Albumin 3.4 Nasal Screen MRSA (PCR) Not detected - Imaging Impressions Cervical Spine CT 05/28/18 20:23 CONCLUSION: 1. Negative trauma study with no acute fracture or malalignment. Chest X-Ray 05/28/18 20:23 CONCLUSION: No acute cardiopulmonary disease. Head CT 05/28/18 20:23 CONCLUSION: 1. High density acute area of hemorrhage along the medial left temporal lobe as described most characteristic of an area of subdural hematoma. 2. Opacification of the upper right maxillary sinus. . Pelvis X-Ray 05/28/18 20:23 CONCLUSION: Negative trauma study. Face CT 05/29/18 07:22 CONCLUSION: 1. There are acute mildly depressed fractures of the right anterior and posterior maxillary sinus carreon with minimally depressed right orbital floor fracture without muscle entrapment. There is associated acute blood products in the right maxillary antrum and there is associated right facial swelling. 2. No other maxillofacial fractures are identified. Assessment and Plan - Assessment (1) Zygomatic fracture, right side, initial encounter for closed fracture Code(s): S02.40EA - Zygomatic fracture, right side, initial encounter for closed fracture Status: Acute - Plan 77-year-old female with minimally displaced right zygomaticomaxillary complex fracture, denying visual complaints Risk benefits and alternative treatments discussed All questions answered and the patient expressed understanding Patient elected to assume the risks of nonoperative treatment of the above fracture Soft diet for several weeks until pain resolves No nose blowing Head of bed elevated as tolerated by patient to minimize edema Ice packs as needed Please call with questions (1) Zygomatic fracture, right side, initial encounter for closed fracture Qualifiers: Encounter type: initial encounter Qualified Code(s): S02.40EA - Zygomatic fracture, right side, initial encounter for closed fracture
[2018-05-29] MEDS: Pantoprazole Inj 40 MG Vial IV.PUSH SCH (22:05)
[2018-05-30 03:53] LABS: Baso # (Auto) 0.1 th/mm3 (0.0-0.2); Baso % (Auto) 1.2 % (0.0-2.0); Eos # (Auto) 0.1 th/mm3 (0.0-0.4); Eos % (Auto) 2.3 % (0.0-4.0); Hematocrit 35.9 % (35.0-46.0); Hemoglobin 12.6 gm/dL (11.6-15.3); Lymph # (Auto) 2.5 th/mm3 (1.0-4.8); Lymph % (Auto) 42.8 % (9.0-44.0); Mean Corpuscular HGB Conc 35.2 % (32.0-36.0); Mean Corpuscular Volume 99.3 fL (80.0-100.0); Mean Platelet Volume 8.5 fL (7.0-11.0); Mono # (Auto) 0.5 th/mm3 (0.0-0.9); Mono % (Auto) 8.6 % (0.0-8.0); Neut # (Auto) 2.7 th/mm3 (1.8-7.7); Neut % (Auto) 45.1 % (16.0-70.0); Platelet Count 167 th/mm3 (150-450); Red Blood Count 3.62 mil/mm3 (4.00-5.30); Red Cell Distribution Width 12.1 % (11.6-17.2); White Blood Count 5.9 th/mm3 (4.0-11.0)
[2018-05-30 04:10] LABS: Albumin 3.4 g/dL (3.4-5.0); Anion Gap 6 meq/L (5-15); Aspartate Aminotransferase 30 U/L (15-37); Blood Urea Nitrogen 14 mg/dL (7-18); Calcium 8.8 mg/dL (8.5-10.1); Carbon Dioxide 25.7 meq/L (21.0-32.0); Chloride 109 meq/L (98-107); Glomerular Filtration Rate 86 mL/min (>89); Glucose,Random 99 mg/dL (74-106); Potassium 3.8 meq/L (3.5-5.1); Sodium 141 meq/L (136-145)
[2018-05-30 04:11] LABS: Alanine Aminotransferase 45 U/L (10-53)
[2018-05-30 04:14] LABS: Alkaline Phosphatase 107 U/L (45-117); Total Protein 6.9 g/dL (6.4-8.2)
[2018-05-30] MEDS: Acetaminophen 325 MG Tablet PO PRN (07:20)
[2018-05-30] MEDS: levETIRAcetam 500 MG Tablet PO SCH ×2 (08:05→20:51)
[2018-05-30] MEDS: Senna/Docusate Sodium 8.6/50 MG Tablet PO SCH ×2 (08:05→20:51)
--- NOTE | 2018-05-30 08:05 | P.PNNPSY ---
- Behavior Intact: Impulsive/agitated - Cognitive Mild: Cognitive, Attention/concentration, Confused/orientation, Insight/ awareness, Judgment/problem solving, Memory - Psychosocial Intact: Psychosocial, Family/other adjustment, Realistic expectation - Progress Notes/Response to Treatment Contents of Sessions: Adjustment, Level of consciousness Time with Patient: 30 minutes Premorbid Psychological Status: Premorbid Cognitive, Emotional and Behavioral Status: Stable. 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 The patient has no prior psychiatric difficulties, as described above. Substance abuse history is unremarkable. Behavioral Reactions of Patient and Family/Support System: Stable. The patient s family is experiencing ongoing issues of adjustment given the nature of the injury, and this aspect of recovery will require ongoing monitoring. Emotional/Behavioral Status of Patient and Family/Support System: Stable. Pertinent issues, if appropriate to this patients clinical care, are described in detail above. Maximizing Acute Care Outcome: It is recommended that the patient be monitored for emergent behavioral impulsivity as the medical condition evolves. This patients neuropathological challenges may limit rehabilitation potential going forward, and these challenges will require specialized therapeutic skills to maximize outcome. Additionally, the patients family is experiencing ongoing issues of adjustment given the traumatic nature of the injury, and they may benefit from ongoing psychological assistance. At this point in the recovery process, the patient does have cognitive capacity as the patient is able to understand a situation and its likely consequences, and she is able to manipulate information rationally. Cognitive capacity will be assessed throughout the recovery process. Anticipated Problems: Ongoing areas of concern will include behavioral impulsivity, lack of insight and judgment, which is expected to improve with time and treatment. Treatment Plan: This clinician will continue to follow with you throughout the course of this patients critical care treatment, and I will be available to meet with the patients family/support system to facilitate their understanding and the ongoing care of their family member. The goals of neuropsychological intervention shall be both educational and supportive to the family/support system as is deemed clinically appropriate. [place] COG Scale: Level Disinhibition Score: 14.00 Aggression Score: 14.00 Lability Score: 14.00 Agitated Behavior Total Score: 14 Impression: 77 year old woman s/p complicated mild TBI 2T fall on 05/28/2018. Progress Note Narrative: PTD 2. The patient is improving and is neurobehaviorally stable. No issues of agitation/restlessness. She is at least Rancho V, and likely . I provided the family materials on recovery from TBI. ABS = 14 (14,14,14). I will follow. - Diagnosis (1) Mild major neurocognitive disorder as late effect of traumatic brain injury without behavioral disturbance Status: Acute
--- NOTE | 2018-05-30 12:57 | P.PNCC ---
Subjective Brief History: 77-year-old lady fell walking from standing position and hit her head on the concrete Amnestic to the event itself complaining about headache and facial pain Patient was initially seen at another hospital and transferred to us for further trauma management Workup reveals Left temporal cerebral hemorrhagic contusion Right maxillary sinus fracture and right inferior orbital wall fracture without muscle entrapment Patient is awake alert and oriented and neurologically intact Neurosurgery consult is greatly appreciated 24 Hour Review/Hospital Course: 05/29/2018 Patient has been stable over the last 16 hours since the admission She is neurologically intact Bruising over the right face and CT scan of the brain reveals an evolving left temporal cerebral contusion We will keep patient in ICU Advance diet IV fluids as needed depending on p.o. intake [facility] Physical therapy and discharge planning 05/30/2018 Patient is awake alert oriented Motorically patient is fully intact Cranial nerves II through XII normal No drift no lateralization Will have repeat CT scan tomorrow and be able to likely be discharged tomorrow barring any surprises Bilateral breath sounds Abdomen soft active bowel sounds Maxillofacial consult is greatly appreciated Transfer to floor and discharge patient tomorrow Objective Vital Signs / I&O: Vital Signs 05/29/18 13:00 05/29/18 13:12 05/29/18 14:00 Temperature Pulse Rate 60 57 L 66 Respiratory Rate 25 H 36 H 32 H Blood Pressure 132/60 Pulse Oximetry 94 L 94 L 95 05/29/18 14:12 05/29/18 15:00 05/29/18 15:12 Temperature Pulse Rate 66 63 63 Respiratory Rate 26 H 21 27 H Blood Pressure 121/58 L 123/56 L Pulse Oximetry 94 L 96 95 05/29/18 16:00 05/29/18 16:12 05/29/18 17:00 Temperature 98.5 F Pulse Rate 60 59 L 61 Respiratory Rate 25 H 24 21 Blood Pressure 119/60 116/55 L Pulse Oximetry 95 95 95 05/29/18 17:12 05/29/18 18:00 05/29/18 18:12 Temperature Pulse Rate 62 61 61 Respiratory Rate 22 24 21 Blood Pressure 119/60 144/65 H Pulse Oximetry 95 95 95 05/29/18 19:00 05/29/18 19:12 05/29/18 20:00 Temperature 98.8 F Pulse Rate 76 71 67 Respiratory Rate 30 H 41 H Blood Pressure 135/63 Pulse Oximetry 97 95 94 L 05/29/18 20:12 05/29/18 21:00 05/29/18 21:12 Temperature Pulse Rate 69 66 65 Respiratory Rate 47 H 20 38 H Blood Pressure 124/59 L 131/60 Pulse Oximetry 94 L 95 95 05/29/18 22:00 05/29/18 22:12 05/29/18 23:00 Temperature Pulse Rate 65 64 Respiratory Rate 21 20 Blood Pressure 135/62 Pulse Oximetry 96 94 L 93 L 05/29/18 23:12 05/30/18 00:00 05/30/18 00:12 Temperature Pulse Rate 62 64 62 Respiratory Rate 34 H 16 20 Blood Pressure 143/63 H 149/65 H Pulse Oximetry 94 L 95 95 05/30/18 01:00 05/30/18 01:12 05/30/18 02:00 Temperature Pulse Rate 58 L 60 64 Respiratory Rate 29 H 26 H 41 H Blood Pressure 126/58 L Pulse Oximetry 95 95 94 L 05/30/18 02:12 05/30/18 03:00 05/30/18 03:12 Temperature Pulse Rate 64 69 67 Respiratory Rate 22 21 18 Blood Pressure 118/60 126/63 Pulse Oximetry 94 L 93 L 95 05/30/18 04:00 05/30/18 04:12 05/30/18 05:00 Temperature 98.4 F Pulse Rate 64 62 62 Respiratory Rate 23 21 21 Blood Pressure 133/63 Pulse Oximetry 95 94 L 94 L 05/30/18 05:12 05/30/18 06:00 05/30/18 06:12 Temperature Pulse Rate 62 67 66 Respiratory Rate 28 H 23 35 H Blood Pressure 148/65 H 144/65 H Pulse Oximetry 93 L 95 94 L 05/30/18 07:00 05/30/18 07:12 05/30/18 07:25 Temperature 98.0 F Pulse Rate 66 70 Respiratory Rate 22 36 H Blood Pressure 132/59 L Pulse Oximetry 93 L 95 05/30/18 07:26 05/30/18 08:00 05/30/18 08:04 Temperature 98.0 F Pulse Rate 71 70 Respiratory Rate 25 H 22 Blood Pressure 117/58 L Pulse Oximetry 95 95 05/30/18 08:12 05/30/18 09:00 05/30/18 09:12 Temperature Pulse Rate 73 72 68 Respiratory Rate 47 H 38 H 38 H Blood Pressure 117/58 L 121/79 Pulse Oximetry 96 96 96 05/30/18 10:00 05/30/18 10:12 05/30/18 11:11 Temperature Pulse Rate 68 66 66 Respiratory Rate 31 H 26 H 27 H Blood Pressure 119/58 L Pulse Oximetry 97 96 96 05/30/18 11:12 05/30/18 12:00 05/30/18 12:12 Temperature 98.3 F Pulse Rate 66 61 60 Respiratory Rate 24 35 H 27 H Blood Pressure 123/58 L 136/63 136/63 Pulse Oximetry 95 95 93 L Intake & Output 05/29/18 05/30/18 05/30/18 18:59 06:59 18:59 Intake Total 1480 / 1480 120 / 120 Balance 1480 / 1480 120 / 120 Weight 68.2 kg Intake: IV 1000 / 1000 NS Inj 1,000 ML @ 100 mls/hr IV 1000 / 1000 .CONT .Q10H [facility] Rx#:[id number] Oral 480 / 480 120 / 120 Other: # Voids 4 3 Date of Last Bowel Movement 05/28/18 05/28/18 05/28/18 # Bowel Movements 1 Result Diagrams: 05/30/18 03:19 05/30/18 03:19 Disinhibition Score: 14.00 Aggression Score: 14.00 Lability Score: 14.00 Agitated Behavior Total Score: 14 Assessment and Plan Attestation: Critical care time 32 minutes
--- NOTE | 2018-05-30 13:24 | P.DCO ---
- Physical Therapy Order: Evaluate and treat, Improve ambulation, Strength and gait training - Occupational Therapy Order: Evaluate and treat, Improve ADL, Gross motor coordination, Fine motor coordination - Home Health Nursing Order: Medical education, Signs/symptoms of disease process, Medication education-adverse effect, Nursing assessment with vital signs - Case Management Consult Case Management Consult-Home Health: Yes - Certification I have seen patient Carmenza Neville on 05/30/18. My clinical findings support the need for the requested home health care services because: Limited mobility due to disease progression, Deconditioned with increased weakness, Limited ability to care for self, High risk of falls I certify that my clinical findings support that this patient is homebound because: Impaired cognitive ability/safety, Unsteady gait/balance, Unsafe to leave home unassisted
[2018-05-30] MEDS: Pantoprazole Inj 40 MG Vial IV.PUSH SCH (22:25)
[2018-05-31 04:17] LABS: Baso # (Auto) 0.1 th/mm3 (0.0-0.2); Baso % (Auto) 0.9 % (0.0-2.0); Eos # (Auto) 0.2 th/mm3 (0.0-0.4); Eos % (Auto) 3.4 % (0.0-4.0); Hematocrit 35.6 % (35.0-46.0); Hemoglobin 12.4 gm/dL (11.6-15.3); Lymph # (Auto) 2.4 th/mm3 (1.0-4.8); Mean Corpuscular HGB Conc 34.9 % (32.0-36.0); Mean Corpuscular Hemoglobin 34.5 pg (27.0-34.0); Mean Platelet Volume 8.8 fL (7.0-11.0); Mono # (Auto) 0.5 th/mm3 (0.0-0.9); Mono % (Auto) 8.3 % (0.0-8.0); Neut # (Auto) 2.6 th/mm3 (1.8-7.7); Neut % (Auto) 45.4 % (16.0-70.0); Platelet Count 173 th/mm3 (150-450); Red Cell Distribution Width 12.3 % (11.6-17.2); White Blood Count 5.8 th/mm3 (4.0-11.0)
[2018-05-31 04:37] LABS: Albumin 3.3 g/dL (3.4-5.0); Anion Gap 7 meq/L (5-15); Aspartate Aminotransferase 33 U/L (15-37); Blood Urea Nitrogen 13 mg/dL (7-18); Calcium 8.3 mg/dL (8.5-10.1); Carbon Dioxide 25.9 meq/L (21.0-32.0); Chloride 108 meq/L (98-107); Glomerular Filtration Rate Greater Than 89 mL/min (>89); Glucose,Random 95 mg/dL (74-106); Potassium 3.8 meq/L (3.5-5.1); Sodium 141 meq/L (136-145)
[2018-05-31 04:42] LABS: Alanine Aminotransferase 42 U/L (10-53); Alkaline Phosphatase 105 U/L (45-117); Total Protein 7.1 g/dL (6.4-8.2)
[2018-05-31 04:48] VITALS: O2SAT 93
--- NOTE | 2018-05-31 07:59 | P.PNNPSY ---
- Behavior Intact: Impulsive/agitated - Cognitive Intact: Cognitive, Attention/concentration, Confused/orientation, Insight/ awareness, Judgment/problem solving, Memory - Psychosocial Intact: Psychosocial, Family/other adjustment, Realistic expectation - Progress Notes/Response to Treatment Contents of Sessions: Adjustment, Level of consciousness Time with Patient: 30 minutes Premorbid Psychological Status: Premorbid Cognitive, Emotional and Behavioral Status: Stable. 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 The patient has no prior psychiatric difficulties, as described above. Substance abuse history is unremarkable. Behavioral Reactions of Patient and Family/Support System: Stable. The patient s family is experiencing ongoing issues of adjustment given the nature of the injury, and this aspect of recovery will require ongoing monitoring. Emotional/Behavioral Status of Patient and Family/Support System: Stable. Pertinent issues, if appropriate to this patients clinical care, are described in detail above. Maximizing Acute Care Outcome: It is recommended that the patient be monitored for emergent behavioral impulsivity as the medical condition evolves. This patients neuropathological challenges may limit rehabilitation potential going forward, and these challenges will require specialized therapeutic skills to maximize outcome. Additionally, the patients family is experiencing ongoing issues of adjustment given the traumatic nature of the injury, and they may benefit from ongoing psychological assistance. At this point in the recovery process, the patient does have cognitive capacity as the patient is able to understand a situation and its likely consequences, and she is able to manipulate information rationally. Cognitive capacity will be assessed throughout the recovery process. Anticipated Problems: Ongoing areas of concern will include behavioral impulsivity, lack of insight and judgment, which is expected to improve with time and treatment. Treatment Plan: This clinician will continue to follow with you throughout the course of this patients critical care treatment, and I will be available to meet with the patients family/support system to facilitate their understanding and the ongoing care of their family member. The goals of neuropsychological intervention shall be both educational and supportive to the family/support system as is deemed clinically appropriate. [place] COG Scale: Level VII Disinhibition Score: 14.00 Aggression Score: 14.00 Lability Score: 14.00 Agitated Behavior Total Score: 14 Impression: 77 year old woman s/p complicated mild TBI 2T fall on 05/28/2018. Progress Note Narrative: PTD 3. The patient is neurobehaviorally stable. No issues of agitation/ restlessness. ABS = 14 (14,14,14). She is at least [place] VII. She is to d/c home today. - Diagnosis (1) Mild major neurocognitive disorder as late effect of traumatic brain injury without behavioral disturbance Status: Acute
[2018-05-31 08:40] VITALS: BP 134/70; RESP 19; TEMP 98.5
[2018-05-31] MEDS: levETIRAcetam 500 MG Tablet PO SCH (08:41)
[2018-05-31] MEDS: Senna/Docusate Sodium 8.6/50 MG Tablet PO SCH (08:41)
[2018-05-31] MEDS: Acetaminophen 325 MG Tablet PO PRN (08:47)
--- NOTE | 2018-05-31 09:40 | CT ---
EXAM DATE: 05/31/2018 9:36 AM EST AGE/SEX: 77 years / Female INDICATIONS: Follow up subdural hematoma. CLINICAL DATA: This is the patient's subsequent encounter. Patient reports that signs and symptoms h ave been present for 3 days and indicates a pain score of 0/10. MEDICAL/SURGICAL HISTORY: Hypertension. Carcinoma, breast. None. RADIATION DOSE: 34.43 CTDI (mGy) COMPARISON: [facility], CT HEAD W/O CONTRAST, 05/28/2018. . TECHNIQUE: CT of the head without contrast. Using automated exposure control and adjustment of the mA and/or kV according to patient size, radiation dose was kept as low as reasonably achievable to ob tain optimal diagnostic quality images. DICOM format image data is available electronically for revi ew and comparison. FINDINGS: Cerebrum: There is mild generalized atrophy and ventricles are normal given the degree of atrophy. M ild periventricular white matter change is present. There is high density along the left temporal lob e measuring approximately 1.4 x 0.9 cm compared to 2.4 x 1.5 cm previously. There is no significant l ocal mass effect. No new blood products are identified. No midline shift, mass lesion, or acute infar ction. No extraaxial fluid collections are seen. Posterior Fossa: The cerebellum and brainstem demonstrate no acute abnormality. The 4th ventricle is midline. The cerebellopontine angle is within normal limits. Extracranial: There is complete opacification of the visualized right maxillary sinus with fracture of the right posterior maxillary sinus wall. Skull: The calvaria is intact. No skull fracture. CONCLUSION: 1. Decreased acute subdural blood products in the left temporal region, as above. No new abnormality is identified. 2. Stable appearance of the right maxillary sinus wall fracture with opacification of the sinus. . Electronically signed by: James Campbell MD Board Certified Radiologist 05/31/2018 9:39 AM EST
[2018-05-31 10:54] VITALS: PULSE 63
--- NOTE | 2018-05-31 11:02 | P.DS ---
Date of admission: 05/28/18 20:24 Primary care physician: Ho Sánchez JR, DO Brief History from admission: S/P Fall DS: Diagnosis - Discharge Diagnosis (1) Fracture of right orbital floor Status: Acute (2) Acute subdural hematoma Status: Acute (3) Zygomatic fracture, right side, initial encounter for closed fracture Status: Acute (4) Mild major neurocognitive disorder as late effect of traumatic brain injury without behavioral disturbance Status: Acute DS: Medications - Discharge Medications Prescriptions: levetiracetam [Keppra] 500 mg PO BID 4 Days #8 tab DS: Summary Hospital Course: [place]: Tripped on uneven concrete subsequently falling and striking her head. ? LOC. Trauma transfer. INJURIES: LEFT SDH RIGHT zygomatic maxillary fx (non-op) RIGHT orbital floor fx (non-op) PMHx: HTN. Osteoporosis. Breast CA w lumpectomy LEFT SDH Neurosurgery consulted, follow-up outpatient Nonoperative management Stable neuro checks Repeat CT brain today shows decreasing left temporal SDH Continue Keppra x 7 days Tylenol for [place] Post-concussive education Avoid second head injury RIGHT zygomatic maxillary fx, RIGHT orbital floor fx OMFS consulted Nonoperative management SINUS precautions F/U outpatient Follow-up with PCP in 1 week Plan of care discussed with patient, and NEWSWRITER at bedside. Collaborating Trauma surgeon agrees with plan. Case management consulted to assist with discharge planning. Patient is clear from trauma surgery standpoint to safely discharge home. - Time Spent with Patient Total time spent providing and/or coordinating discharge services: Greater than 30 minutes - Quality: VTE Deep Vein Thrombosis/Pulmonary Embolism Present on Admission: No Exam Vital signs: Vital Signs 05/30/18 11:11 05/30/18 11:12 05/30/18 12:00 Temperature 98.3 F Pulse Rate 66 66 61 Respiratory Rate 27 H 24 35 H Blood Pressure 123/58 L 136/63 Pulse Oximetry 96 95 95 05/30/18 12:12 05/30/18 13:00 05/30/18 14:00 Temperature Pulse Rate 60 63 65 Respiratory Rate 27 H Blood Pressure 136/63 134/63 132/62 Pulse Oximetry 93 L 94 L 93 L 05/30/18 15:00 05/30/18 15:51 05/30/18 15:56 Temperature Pulse Rate 66 68 68 Respiratory Rate 16 Blood Pressure 135/65 134/63 Pulse Oximetry 94 L 95 12/19/18 16:00 05/30/18 17:00 05/30/18 18:00 Temperature 98.3 F Pulse Rate 66 63 63 Respiratory Rate 21 22 22 Blood Pressure 134/63 150/62 H Pulse Oximetry 93 L 94 L 96 05/30/18 18:15 05/30/18 18:16 05/30/18 20:00 Temperature Pulse Rate 64 67 62 Respiratory Rate 21 22 Blood Pressure 150/67 H Pulse Oximetry 95 05/30/18 20:54 05/30/18 20:55 05/30/18 21:00 Temperature 97.9 F Pulse Rate 62 61 Respiratory Rate 21 48 H Blood Pressure 139/63 Pulse Oximetry 95 95 05/30/18 22:00 05/30/18 23:00 05/31/18 00:00 Temperature 98.4 F Pulse Rate 61 61 59 L Respiratory Rate 18 20 18 Blood Pressure Pulse Oximetry 96 94 L 94 L 05/31/18 00:05 05/31/18 01:00 05/31/18 02:00 Temperature Pulse Rate 59 L 59 L 59 L Respiratory Rate 21 20 19 Blood Pressure 145/64 H Pulse Oximetry 95 95 94 L 05/31/18 03:00 05/31/18 04:00 05/31/18 04:05 Temperature 98.4 F Pulse Rate 61 60 59 L Respiratory Rate 22 16 34 H Blood Pressure 150/67 H Pulse Oximetry 95 94 L 93 L 05/31/18 06:00 05/31/18 08:00 05/31/18 10:00 Temperature 98.5 F Pulse Rate 60 62 63 Respiratory Rate 19 Blood Pressure 134/70 Pulse Oximetry Intake & Output 05/30/18 05/31/18 05/31/18 18:59 06:59 18:59 Intake Total 960 / 960 240 / 240 Balance 960 / 960 240 / 240 Intake: Oral 960 / 960 240 / 240 Other: # Voids 5 3 Date of Last Bowel Movement 05/30/18 05/28/18 # Bowel Movements 1 - Constitutional no acute distress Comments: Sitting on the edge of the bed eating breakfast - Routine HEENT Exam Head: Present: normocephalic Eye: Present: PERRL Comments: RIGHT periorbital and chin ecchymosis noted - Routine Neck Exam Present: supple - Routine Respiratory Exam Present: CTA bilaterally - Routine Cardiovascular Exam Present: RRR - Routine Abdominal Exam Present: soft, normoactive bowel sounds - Routine Extremities Exam Present: full ROM, pulses intact - Routine Skin Exam Present: intact - Routine Neurological Exam Present: alert, oriented X3 Results Procedures completed during hospitalization: . Labs on day of discharge: Labs from last 24 hours 05/31/18 05/31/18 03:09 03:09 WBC 5.8 RBC 3.60 L Hgb 12.4 Hct 35.6 MCV 99.0 MCH 34.5 H MCHC 34.9 RDW 12.3 Plt Count 173 MPV 8.8 Neut % (Auto) 45.4 Lymph % (Auto) 42.0 [place] % (Auto) 8.3 H Eos % (Auto) 3.4 Baso % (Auto) 0.9 Neut # (Auto) 2.6 Lymph # (Auto) 2.4 [place] # (Auto) 0.5 Eos # (Auto) 0.2 Baso # (Auto) 0.1 WBC Differential . Differential Comment Auto diff final Sodium 141 Potassium 3.8 Chloride 108 H Carbon Dioxide 25.9 Anion Gap 7 BUN 13 Creatinine 0.57 Estimated GFR Greater than 89 Random Glucose 95 Calcium 8.3 L Total Bilirubin 0.4 AST 33 ALT 42 Alkaline Phosphatase 105 Total Protein 7.1 Albumin 3.3 L - Impressions ITS Impressions Cervical Spine CT 05/28/18 20:23 CONCLUSION: 1. Negative trauma study with no acute fracture or malalignment. Chest X-Ray 05/28/18 20:23 CONCLUSION: No acute cardiopulmonary disease. Pelvis X-Ray 05/28/18 20:23 CONCLUSION: Negative trauma study. Face CT 05/29/18 07:22 CONCLUSION: 1. There are acute mildly depressed fractures of the right anterior and posterior maxillary sinus carreon with minimally depressed right orbital floor fracture without muscle entrapment. There is associated acute blood products in the right maxillary antrum and there is associated right facial swelling. 2. No other maxillofacial fractures are identified. Head CT 05/31/18 08:00 CONCLUSION: 1. Decreased acute subdural blood products in the left temporal region, as above. No new abnormality is identified. 2. Stable appearance of the right maxillary sinus wall fracture with opacification of the sinus. . Discharge Plan - Discharge Disposition Patient Disposition: 01 Discharge Home - Discharge Condition Condition: Stable - Discharge Order Discharge Orders: Discharge Order (Routine); Ordered 12/20/18 Ordered By: Thor Hui ED Use Only Admit Order (Routine); Ordered 05/28/18 Ordered By: Cher Leos - Physicians Team Primary Care Provider: Ho Sánchez JR Attending Provider: Raffy Roche Other Providers: Catarino Miller MD ; Jd Gamboa MD ; [employer] [employer] [facility] ; Raffy Roche MD ; Jennifer Paulson ARNP ; Zeke Martin MD ; Pamela Haynes MD ; Thor Hui ARNP ; Lucas Clark MD ; Mesfin Iverson MD ; Hal Fournier MD ; Tony Jimenez ; Wale Conn, PhD
== END 2018-05-31 10:59 | disposition home or self-care (01) ==
LOC: NEPC 20:00 → NEDA 20:24 → N03 23:25
PROVIDERS: ADMIT Surgery; ATTEND Surgery